=== PATIENT | male | born 1965 | race Asian ===

== ENCOUNTER 2017-09-28 13:49 | Emergency (ER) | payer OTHER ==
[2017-09-28 14:24] VITALS: BMI 28.7
--- NOTE | 2017-09-28 14:25 | PDOC ---
Rapid Medical Evaluation Time Seen by Provider: 09/28/17 14:16 Medical Evaluation: 09/28/17 14:20 Pt presents to the ED with a complaint of a cut to his R 3rd finger one week ago. He was seen in [facility] after the injury. He states he had his finger cut by a lawnmower. Pt is R hand dominant. On keflex. Tetanus within the last 10 years Exam: Avulsion to R 3rd distal finger. Foul smell. Finger is swollen with some streaking. Able to bend the PIP joint. Orders: CBC, CMP, PT/INR, blood cultures Pt to proceed to ED for further evaluation Discharge Disposition - Diagnosis Avulsion injury - Referrals - Patient Instructions - Post Discharge Activity
--- NOTE | 2017-09-28 15:09 | PDOC ---
History of Present Illness - General Chief Complaint: Wound Stated Complaint: RT FINGER INJURY Time Seen by Provider: 09/28/17 14:16 History Source: Patient Exam Limitations: No Limitations - History of Present Illness Initial Comments: 09/28/17 16:43 Mr. Buitrago is a 52 yo M with a hx of dyslipidemia who presents to the ED with right 3rd digit tip avulsion from 09/21/2017 Past History - Past Medical History Allergies/Adverse Reactions: Allergies Allergy/AdvReac Type Severity Reaction Status Date / Time No Known Allergies Allergy Verified 09/28/17 14:21 - Suicide/Smoking/Psychosocial Hx Smoking History: Never smoked Hx Alcohol Use: No Drug/Substance Use Hx: No *Physical Exam - Vital Signs Last Vital Signs Temp Pulse Resp BP Pulse Ox 98.7 F 67 16 117/74 100 09/28/17 14:21 09/28/17 14:21 09/28/17 14:21 09/28/17 14:21 09/28/17 14:21 ED Treatment Course - LABORATORY CBC & Chemistry Diagram: 09/28/17 16:48 09/28/17 16:48 *DC/Admit/Observation/Transfer Diagnosis at time of Disposition: Avulsion injury - Discharge Dispostion Disposition: HOME Decision to Admit order: No - Referrals Referrals: Tristen Sharpe MD [Primary Care Provider] - Bc Mata MD [Staff Physician] - - Patient Instructions Printed Discharge Instructions: Skin Wound Additional Instructions: You have been diagnosed with an avulsion finger tip injury. You are referred to Dr. Mata for follow up care regarding this. Please return to the emergency department if systemic symptoms occur such as fever and increased pain. In addition, please return if the wound becomes infected and has discharge. - Post Discharge Activity
--- NOTE | 2017-09-28 16:30 | PDOC ---
Attending Attestation - Resident Resident Name: Leodan Almendarez - ED Attending Attestation I have performed the following: I have examined & evaluated the patient, The case was reviewed & discussed with the resident, I agree w/resident's findings & plan, Exceptions are as noted - HPI HPI: 09/28/17 16:28 52 year old right hand dominant Male c/ hx of HLD p/w Right middle finger avulsion. Occurred when fixing and taking out grass from beer maker 6 days ago. The blade had then cut his finger and avulsed a part of the tissue. Followed up [facility] and was given antibiotics for 7 days. (Unsure of which antibiotics) and instructed to follow up with his PMD. Tried to see his PMD but was not available. Was directed to ER. Denies pus or discharge or fevers. - Physicial Exam PE: 09/28/17 17:04 GENERAL: Awake, alert, and fully oriented, in no acute distress HEAD: No signs of trauma EYES: EOMI, sclera anicteric, conjunctiva clear ENT: Auricles normal inspection, hearing grossly normal, nares patent NECK: Normal ROM, supple EXTREMITIES: Normal range of motion, no edema. No clubbing or cyanosis. No cords, erythema, or tenderness RUE: 2+ radial pulse. Sensation and strength intact throughout the median/radian /ulnar nerve distribution. No bony tenderness. Approximately 2x1 cm granulating avulsion to 3rd distal tip. No purulence or drainage. NEUROLOGICAL: Cranial nerves II through XII grossly intact. Normal speech, normal gait SKIN: Warm, Dry, normal turgor, no rashes or lesions noted. - Medical Decision Making 09/28/17 16:30 Vital Signs Temp Pulse Resp BP Pulse Ox 98.7 F 67 16 117/74 100 09/28/17 14:21 09/28/17 14:21 09/28/17 14:21 09/28/17 14:21 09/28/17 14:21 Patient presents for wound check. Dr. Almendarez had discussed the case with Dr. Mata (plastics). Recommends cleaning the wound, continue prophylaxis antibiotics, and follow up as an outpatient with him. I agree with the surgeon's plan for outpatient follow up.
[2017-09-28 17:19] LABS: INR 1.07 (0.82-1.09); PROTHROMBIN TIME (PATIENT) 12.1 SEC (9.7-13.0)
[2017-09-28 17:25] LABS: BASO % 0.3 % (0-2.0); EOS % 2.5 % (0-4.5); HEMATOCRIT 43.4 % (35.4-49); HEMOGLOBIN 14.4 GM/dL (11.7-16.9); LYMPH % 21.2 % (8-40); MCH 30.5 pg (25.7-33.7); MCHC 33.2 g/dl (32.0-35.9); MEAN CELL VOLUME 91.8 fl (80-96); MEAN PLT VOLUME 7.9 fl (7.5-11.1); MONO % 5.3 % (3.8-10.2); NEUT % 70.7 % (42.8-82.8); PLATELET COUNT 228 K/MM3 (134-434); RBC 4.73 M/mm3 (4.00-5.60); RDW 13.2 % (11.9-15.9)
[2017-09-28 17:51] LABS: ALBUMIN 4.4 g/dl (3.4-5.0); ALK PHOS 60 U/L (45-117); ANION GAP 7 (8-16); BILIRUBIN,TOTAL 0.5 mg/dL (0.2-1.0); BLOOD UREA NITROGEN 20 mg/dL (7-18); CALCIUM 9.6 mg/dL (8.5-10.1); CHLORIDE 107 mmol/L (98-107); CO2 28 mmol/L (21-32); CREATININE 1.1 mg/dL (0.7-1.3); GLUCOSE,RANDOM 93 mg/dL (74-106); POTASSIUM 4.6 mmol/L (3.5-5.1); SGOT/AST 18 U/L (15-37); SGPT/ALT 34 U/L (12-78); SODIUM 142 mmol/L (136-145); TOT PROT 7.6 g/dl (6.4-8.2)
[2017-09-28 19:07] VITALS: BP 126/75; PULSE 78; TEMP 98.5
== END 2017-09-28 19:06 | disposition home or self-care (01) ==
LOC: JER 13:49
DX: S61.202A Unspecified open wound of right middle finger without damage to nail, initial encounter (principal); W28.XXXA Contact with powered lawn mower, initial encounter; Y93.H2 Activity, gardening and landscaping; Y92.89 Other specified places as the place of occurrence of the external cause; Y99.8 Other external cause status
CPT/HCPCS: 36415; 80053; 85025; 85610; 86850; 86900; 86901; 87040; 99281-25